=== PATIENT | female | born 1940 | race Native Hawaiian/Other Pacific Islander ===

== ENCOUNTER 2019-10-14 14:25 | Emergency (ER) | payer OTHER ==
[~2019-10-14] VITALS: Ht 162.6 cm; Wt 53.5 kg
[2019-10-14 14:25] VITALS: BP 144/61; TEMP 99.6
[2019-10-14 14:56] LABS: PLATELET COUNT 300 K/uL (152-353)
[2019-10-14 15:09] LABS: POTASSIUM 4.1 mmol/L (3.6-5.2)
[2019-10-14] MEDS ORDERED: ATOR10TA3 PO (17:36)
[2019-10-14] MEDS ORDERED: BISOPROL FUM5 MG PO (17:37)
[2019-10-14] MEDS ORDERED: BREO ELLIPTA 101 INH INH (17:38)
[2019-10-14] MEDS ORDERED: CLONAZEP ODT0.5 MG PO (17:39)
[2019-10-14] MEDS ORDERED: DICYCLOMINE HYD10 MG PO (17:43)
[2019-10-14] MEDS ORDERED: DOCU100C10 PO (17:43)
[2019-10-14] MEDS ORDERED: ALBUSOL INH (17:51)
[2019-10-14] MEDS ORDERED: ESCI20TA PO (17:55)
[2019-10-14] MEDS ORDERED: FISH OIL OMEGA-1 CAP PO (17:57)
[2019-10-14] MEDS ORDERED: LACTASE PO (17:58)
[2019-10-14] MEDS ORDERED: ALLERGY RELIEF 25 MG PO (17:59)
[2019-10-14] MEDS ORDERED: OLANZAPINE15 MG PO (18:01)
[2019-10-14] MEDS ORDERED: MONT10TA PO (18:01)
[2019-10-14] MEDS ORDERED: OMEPRAZOLE DR40 MG PO (18:04)
[2019-10-14] MEDS ORDERED: [UNRECOGNIZED DRUG - CODE] EX (18:08)
[2019-10-14] MEDS ORDERED: SENNOSIDES (SE8.6 MG PO (18:11)
[2019-10-14] MEDS ORDERED: RESTASIS0.05 % OPTH (18:11)
[2019-10-14] MEDS ORDERED: TOPAMAX25 MG PO (18:13)
[2019-10-14] MEDS ORDERED: VITAMIN D50000 UNIT PO (18:15)
== END 2019-10-14 16:57 | disposition other institution (70) ==
LOC: ED 14:25
PROVIDERS: Family Medicine
DX: N39.0 Urinary tract infection, site not specified (principal); E87.1 Hypo-osmolality and hyponatremia; F22 Delusional disorders; F20.89 Other schizophrenia; Z11.59 Encounter for screening for other viral diseases; Z04.6 Encounter for general psychiatric examination, requested by authority
CPT/HCPCS: 80053; 81000; 85027; 87077; 87086; 87088; 87186; 87635; 93005; 99283; U0002